=== PATIENT | female | born 1965 | race Caucasian/White ===

== ENCOUNTER 2019-06-13 10:38 | Inpatient (IN) ==
[2019-06-13 11:01] LABS: URINE SOURCE CLEAN CATCH
[2019-06-13 11:04] LABS: BILIRUBIN URINE NEGATIVE (NEGATIVE); BLOOD URINE MODERATE (NEGATIVE); COLOR ORANGE; GLUCOSE URINE NEGATIVE (NEGATIVE); KETONE URINE NEGATIVE (NEGATIVE); LEUKOCYTES URINE LARGE (NEGATIVE); NITRITE URINE POSITIVE (NEGATIVE); PROTEIN URINE 70 mg/dL (NEGATIVE); SP GRAVITY URINE 1.017; TURBIDITY URINE TURBID (CLEAR); UROBILINOGEN URINE NORMAL (NORMAL)
[2019-06-13] MEDS ORDERED: NS 1,000 ML IV ONE ×2 (11:07→11:46)
[2019-06-13 11:08] LABS: UR EPITHELIAL CELLS <10 /HPF (<10); URINE BACTERIA 3+ /HPF; URINE CASTS NONE SEEN; URINE CRYSTALS NONE SEEN; URINE SMALL ROUND CELLS NONE SEEN; URINE WBC TNTC /HPF (<10); URINE YEAST NONE SEEN
[2019-06-13] MEDS ORDERED: ZOFRAN IV ONE (11:08)
[2019-06-13 11:35] LABS: BASO# 0.03 X1000 (0.0-0.2); BASO% 0.1 % (0.0-0.8); EOS# 0.14 X1000 (0.0-0.7); EOS% 0.6 % (0.0-10.0); HEMATOCRIT 42.8 % (37.0-47.0); HEMOGLOBIN 14.8 g/dL (12.0-16.0); IMM GRAN# 0.32 X1000 (0.0-0.04); IMM GRAN% 1.4 % (0.0-0.5); MCH 31.5 PG (27-31); MCHC 34.6 g/dL (33-37); MCV 91.1 FL (81-99); MONO# 0.43 X1000 (0.11-0.59); MONO% 1.8 % (1.7-9.3); MPV 10.5 FL (7.4-10.4); NEUT# 21.18 X1000 (1.4-6.5); NEUT% 90.1 % (42.2-75.2); PLT 170 X1000 (130-400); RDW 13.5 % (11.5-14.5)
[2019-06-13 11:37] LABS: AGAP 15; ALBUMIN 3.5 g/dL (3.5-5.0); ALKALINE PHOSPHATASE 113 U/L (32-104); BUN 21 mg/dL (8-22); CHLORIDE 101 mmol/L (98-107); COSMO 277; CREATININE 0.7 mg/dL (0.5-0.9); ESTIMATED GFR > 60; GLUCOSE 143 mg/dL (70-104); GOT 63 U/L (10-30); GPT 121 U/L (10-36); LIPASE 17 U/L (13-60); POTASSIUM 3.4 mmol/L (3.5-5.1); SODIUM 136 mmol/L (136-145); TCO2 21 mmol/L (25-35); TOTAL PROTEIN 6.9 g/dL (6.3-8.3)
[2019-06-13 11:45] LABS: BANDS 6 % (0-1); EOS 1 % (1-10); LYMPHS 4 % (21-51); MONO 6 % (1-9); SEGS 81 % (42-75)
[2019-06-13] MEDS ORDERED: ZOSYN 3.375 GM in NS 50 ML IV ONE (11:46)
[2019-06-13 11:54] LABS: INFLUENZA A NEGATIVE (NEGATIVE); INFLUENZA B NEGATIVE (NEGATIVE)
[2019-06-13 12:07] LABS: INR 1.15; PROTIME 15.3 Seconds (11.0-16.0)
[2019-06-13 12:08] LABS: PTT 32.2 Seconds (22.3-41.8)
--- NOTE | 2019-06-13 12:55 | Diag Imaging Result Doc PS360 ---
EXAM: CHEST-1 VIEW INDICATION: abd pain TECHNIQUE: One view COMPARISON: 05/10/2019 FINDINGS: The lungs are grossly clear. There is no discrete pleural fluid collection or pneumothorax. The cardiomediastinal silhouette and central vasculature are grossly unremarkable. IMPRESSION: No evidence of acute pathology by plain radiograph. Electronically signed by Alexx Leach 06/13/2019 12:53 PM
--- NOTE | 2019-06-13 13:06 | Diag Imaging Result Doc PS360 ---
EXAM: CT ABD/PELVIS W/IV CONT ONLY INDICATION: abd pain. N/V, POSSIBLE PYELO TECHNIQUE: This exam was performed using automated exposure control, adjustment of mA or kV according to patient size, and/or use of iterative reconstruction technique. COMPARISON: None. FINDINGS: There has been a prior cholecystectomy. There are a couple of small cystic appearing foci near the dome of the liver with no associated enhancement. The spleen, pancreas, and adrenal glands are unremarkable. There is an obstructing stone at the left UPJ measuring up to 6.7 mm axially and 10 mm craniocaudally. There is associated moderate left hydronephrosis. There is no striated nephrogram to indicate pyelonephritis by CT. There is very little perinephric stranding on the left. There are a few other nonobstructing intrarenal stones bilaterally. There are several small bilateral renal cysts. The urinary bladder is grossly unremarkable. The reproductive tract is unremarkable as imaged. There is a surgical staple line associated with the rectosigmoid colon indicating prior partial colon resection. There is extensive uncomplicated diverticulosis coli. There is evidence of a prior appendectomy. No focal bowel wall thickening or bowel obstruction is identified. The remainder of the GI tract is essentially unremarkable. IMPRESSION: 1.Bilateral nephrolithiasis with a large obstructing stone at the left UPJ with associated moderate left hydronephrosis. 2.Other incidental/nonacute findings detailed above. Electronically signed by Alexx Leach 06/13/2019 1:03 PM
--- NOTE | 2019-06-13 13:51 | PROVIDER DOCUMENTATION ---
This chart was entered by Rima Nelson Scribe, acting as scribe for Kamille Barcenas CRNP. HPI-General Adult - General Chief Complaint: N/V/D Stated Complaint: N/V/D, DIZZY Time Seen by Provider: 06/13/19 11:07 Source: patient Allergies/Adverse Reactions: Patient Allergies Allergy/AdvReac Type Severity Reaction Status Date / Time levofloxacin [From Levaquin] Allergy Unknown Verified 06/13/19 11:04 Home Medications: Home Medication List Medication Instructions Recorded Confirmed Last Taken Type NK [No Home Medications] 06/13/19 06/13/19 Unknown History - History of Present Illness -Gen Adult Nature of Presenting Problems: 53 y/o female presents to ED with N/V/D and dizziness onset 3 days ago. Pt reports she experienced some R sided abdominal pain, but it resolved within the first day. Pt is alert and oriented. Location of Pain/Injury: reports: abdomen Pain Radiation: reports: no radiation Quality of Pain: reports: aching Severity: reports: mild Onset/Duration: reports: 3 days ago Timing: reports: still present, gone now (abdominal pain) Context/Activities at Onset: reports: none Modifying Factors: improves with: nothing Associated Symptoms: reports: diarrhea, dizziness, nausea, vomiting, other (R sided abdominal pain) Similar Symptoms Previously?: No Recently seen or treated by another doctor?: No Review of Systems - Adult - REVIEW OF SYSTEMS - ADULT Constitutional: denies: chills, fever Eyes: reports: no symptoms reported Ears, Nose, Mouth & Throat: reports: no symptoms reported Cardiovascular: denies: chest pain, palpitations Respiratory: denies: cough, shortness of breath Gastrointestinal: reports: abdominal pain, diarrhea, nausea, vomiting Genitourinary: reports: no symptoms reported Musculoskeletal: reports: no symptoms reported Integumentary: reports: no symptoms reported Neurological: reports: dizziness/vertigo. denies: seizure Psychiatric: reports: no symptoms reported Endocrine: reports: no symptoms reported Hematologic/Lymphatic: reports: no symptoms reported Allergic/Immunologic: reports: no symptoms reported All Other Systems: Reviewed and Negative Past History - Adult - PAST MEDICAL HISTORY-ADULT Review of Records: reports: Old Records Reviewed, Nursing Assessment Review, Medications Reviewed Major Childhood Illnesses: reports: denies history - PRIOR SURGERIES/PROCEDURES Surgical/Procedure History: reports: hernia repair, bowel surgery (colon resection with mesh) - IMMUNIZATION STATUS Childhood Immunizations: See Nurse Assessment Flu Vaccine: See Nurse Assessment - FAMILY HISTORY Family History: reviewed, not pertinent - SOCIAL HISTORY Smoking: greater than 1 pack/day Provider spent 3-5 mins advising pt. on dangers of tobacco.: Discussed manners to quit use, and f/u contacts for add'l counseling. Substance Use: none/never Alcohol Use Frequency: occasionally Living Situation: family Physical Exam-General - PHYSICAL EXAM-ADULT Initial Vital Signs Reviewed: Yes - CONSTITUTIONAL General Appearance: appears well, alert, no apparent distress - EYES Eyes: PERRL/EOMI, pink conjunctivae - HEAD, EARS, NOSE, MOUTH & THROAT HENMT: normocephalic/atraumatic, moist mucous membranes, normal ENT inspection - NECK Neck: non-tender, full range of motion - RESPIRATORY Respiratory: chest non-tender, lungs clear, normal breath sounds - CARDIOVASCULAR Cardiovascular: tachycardia - GASTROINTESTINAL (ABDOMEN) Abdominal Exam: non tender, soft, abnormal bowel sounds (hyperactive) - MUSCULOSKELETAL Back Exam: normal inspection, no CVA tenderness, no vertebral tenderness Extremity: normal range of motion, non-tender - SKIN Integumentary: normal color, warm/dry - NEUROLOGIC Neurologic: grossly normal - PSYCHIATRIC Psych/Mental Status: normal mood/affect, normal thought content, normal thought process, oriented x 3 Progress - PLAN OF CARE/RESULTS Progress/Plan/Lab Results: Vital Signs - 8 hr 06/13/19 10:50 06/13/19 11:22 Temperature 97.7 F Pulse Rate 103 H Pulse Rate [Sitting] 90 Pulse Rate [Standing] 98 H Pulse Rate [Supine] 85 Respiratory Rate 18 Blood Pressure 95/63 Blood Pressure [Sitting] 94/71 Blood Pressure [Standing] 96/67 Blood Pressure [Supine] 113/82 O2 Sat by Pulse Oximetry 95 Laboratory Results - last 24 hr 06/13/19 06/13/19 10:53 11:00 Amylase 41 Urine Source CLEAN CATCH Urine Color ORANGE Urine Turbidity TURBID Urine pH 6.0 Ur Specific [place] 1.017 Urine Protein 70 A Ur Glucose (Stick) NEGATIVE Ur Ketones (Stick) NEGATIVE Urine Blood MODERATE A Urine Nitrite POSITIVE A Urine Bilirubin NEGATIVE Urobilinogen Dipstick NORMAL Urine Leukocytes LARGE A Urine WBC (Auto) TNTC A Urine RBC (Auto) 10-20 A U Epithel Cells (Auto) <10 Urine Bacteria (Auto) 3+ Urine Crystals NONE SEEN Small Round Cells NONE SEEN Urine Casts NONE SEEN Urine Yeast-like Cells NONE SEEN Orders Category Date Time Status Orthostatic Vital Signs NOW Care 06/13/19 11:07 Active Saline Loc DIRECTED Care 06/13/19 10:53 Active NPO Diet 06/13/19 10:[address] ABD/PELVIS W/IV CONT ONLY [CT] Stat Exams 06/13/19 11:08 Ordered AMYLASE [CHEM] Stat Lab 06/13/19 11:00 Completed BLOOD CULTURE [BLDCUL] Stat Lab 06/13/19 11:12 Ordered CBC WITH ELECTRONIC DIFF [HEME] Stat Lab 06/13/19 11:00 Results COMPREHENSIVE METABOLIC PANEL [CHEM] Stat Lab 06/13/19 11:00 Received Flu [INFLUENZA SCREEN PL] Stat Lab 06/13/19 11:17 Ordered LACTATE, PLASMA [CHEM] Stat Lab 06/13/19 11:12 Ordered LIPASE [CHEM] Stat Lab 06/13/19 11:00 Received URINALYSIS W/POSS RFLX CULT [URINALYSIS] Stat Lab 06/13/19 10:53 Completed URINE CULTURE [RM] Routine Lab 06/13/19 11:08 Ordered URINE MANUAL MICROSCOPIC [URINALYSIS] Stat Lab 06/13/19 10:53 Completed 0.9% Sodium Chloride Inj [Ns] 1,000 ml Med 06/13/19 11:07 Active IV 999 mls/hr Ondansetron [Zofran] Med 06/13/19 11:08 Discontinued 4 mg IV NOW ONE Result Diagrams: 06/13/19 11:00 06/13/19 11:00 - XRAY 1 XRAY Study: Chest Impression: See EMR Report ( EXAM: CHEST-1 VIEW INDICATION: abd pain TECHNIQUE: One view COMPARISON: 05/10/2019 FINDINGS: The lungs are grossly clear. There is no discrete pleural fluid collection or pneumothorax. The cardiomediastinal silhouette and central vasculature are grossly unremarkable. IMPRESSION: No evidence of acute pathology by plain radiograph. Electronically signed by Alexx Leach 06/13/2019 12:53 PM 06/13/19 1253 Interpreting Physician: Alexx Leach MD Dictated Date/Time: 06/13/19 1252 cc: Kamille Barcenas; Neeta Campbell MD) - CT/MRI 1 CT Study: Abdomen, Pelvis Impression: See EMR Report ( EXAM: CT ABD/PELVIS W/IV CONT ONLY INDICATION: abd pain. N/V, POSSIBLE PYELO TECHNIQUE: This exam was performed using automated exposure control, adjustment of mA or kV according to patient size, and/or use of iterative reconstruction technique. COMPARISON: None. FINDINGS: There has been a prior cholecystectomy. There are a couple of small cystic appearing foci near the dome of the liver with no associated enhancement. The spleen, pancreas, and adrenal glands are unremarkable. There is an obstructing stone at the left UPJ measuring up to 6.7 mm axially and 10 mm craniocaudally. There is associated moderate left hydronephrosis. There is no striated nephrogram to indicate pyelonephritis by CT. There is very little perinephric stranding on the left. There are a few other nonobstructing intrarenal stones bilaterally. There are several small bilateral renal cysts. The urinary bladder is grossly unremarkable. The reproductive tract is unremarkable as imaged. There is a surgical staple line associated with the rectosigmoid colon indicating prior partial colon resection. There is extensive uncomplicated diverticulosis coli. There is evidence of a prior appendectomy. No focal bowel wall thickening or bowel obstruction is identified. The remainder of the GI tract is essentially unremarkable. IMPRESSION: 1.Bilateral nephrolithiasis with a large obstructing stone at the left UPJ with associated moderate left hydronephrosis. 2.Other incidental/nonacute findings detailed above. Electronically signed by Alexx Leach 06/13/2019 1:03 PM 06/13/19 1303 Interpreting Physician: Alexx Leach MD Dictated Date/Time: 06/13/19 1256 cc: Kamille Barcenas; Neeta Campbell MD) - CONSULTS/PCP/HOSPITALIST Notification #1 *Consult/PCP/Hospitalist*: Dr. Nieves Time Discussed: 13:15 Consult Disposition: Admit (to [facility] and will take straight to OR) #2 Consult: Dr. Reese Time Discussed: 13:51 Consult Disposition: Will see in ED (20 min then to OR) Departure - Departure Date of Disposition Decision: 06/13/19 Time of Disposition Decision: 13:27 DIAGNOSIS: UTI (urinary tract infection), Sepsis, Urinary tract obstruction due to kidney stone Disposition: ADMITTED INPATIENT 09 Certified Medical Emergency: Emergent Condition: Stable Referrals and Follow-Ups: Neeta Campbell MD [Primary Care Provider] - Discharge Education: Steps to Quit Smoking, [id number] - Critical Care Note This patient required my direct & personal management of CC.: No Attestation - Physician/ MAKENNA Attestation Patient care was provided by Advanced Practice Provider:: Yes Advanced Practice Provider:: Kamille Barcenas Advanced Practice Provider documentation review:: The Mid-level provider documentation, treatment plan and medical decision making was reviewed by the physician who agrees with all treatment and medical decision making by the MLP. The physician spent face to face time with patient:: No Advanced Practice Provider documentation review:: Supervising physician onsite and consulted in the evaluation and care of this patient. The physician did not have a face to face encounter with the patient. This chart was documented by the indicated scribe, (Rima Nelson Scribe) and accurately reflects the services I performed and decisions made by me, Kamille Barcenas CRNP, as attested by the provider's signature.
--- NOTE | 2019-06-13 14:20 | EKG Report ---
Test Performed on : 06/13/2019 2:14:51 PM Test Reason : Dizziness Blood Pressure : / mmHG Vent. Rate : 078 BPM Atrial Rate : 078 BPM P-R Int : 138 ms QRS Dur : 082 ms QT Int : 386 ms P-R-T Axes : 065 023 067 degrees QTc Int : 440 ms Normal sinus rhythm. Normal ECG No previous ECGs available Unconfirmed Result
--- NOTE | 2019-06-13 14:52 | ED EKG INTERP ---
This chart was entered by Rima Nelson Scribe, acting as scribe for Sam Medrano MD. EKG Interpretation - EKG Time of EKG reading by physician:: 14:14 EKG Read and Signed by:: Sam Medrano EKG Interpretation (*Must complete 3 of following elements*): Normal Rate: 78 Rhythm: NSR [place]: normal QRS: normal MS Interval: normal ST Wave: normal Attestation - Physician/ MAKENNA Attestation Patient care was provided by Advanced Practice Provider:: Yes Advanced Practice Provider:: Kamille Barcenas Advanced Practice Provider documentation review:: The Mid-level provider documentation, treatment plan and medical decision making was reviewed by the physician who agrees with all treatment and medical decision making by the P. The physician spent face to face time with patient:: No Advanced Practice Provider documentation review:: Supervising physician onsite and consulted in the evaluation and care of this patient. The physician did not have a face to face encounter with the patient. This chart was documented by the indicated scribe, (Rima Nelson Scribe) and accurately reflects the services I performed and decisions made by me, Sam Medrano MD, as attested by the provider's signature.
[2019-06-13] MEDS ORDERED: XYLOCAINE-MPF 2% ONE (15:47)
[2019-06-13] MEDS ORDERED: ZOFRAN ONE (15:47)
[2019-06-13] MEDS ORDERED: DIPRIVAN 1% ONE (15:47)
[2019-06-13] MEDS ORDERED: DECADRON ONE (15:47)
[2019-06-13] MEDS ORDERED: PRECEDEX ONE (15:49)
[2019-06-13] MEDS ORDERED: EPHEDRINE ONE (16:30)
[2019-06-13] MEDS ORDERED: DITROPAN ONE (17:13)
[2019-06-13] MEDS ORDERED: NS 1,000 ML ONE (17:14)
[2019-06-13] MEDS ORDERED: NS 1,000 ML IV SCH ×2 (17:35)
[2019-06-13] MEDS ORDERED: TYLENOL PO PRN (17:35)
[2019-06-13] MEDS ORDERED: ZOFRAN IV PRN (17:35)
--- NOTE | 2019-06-13 17:42 | HISTORY AND PHYSICAL ---
HISTORY OF PRESENT ILLNESS: She had sudden onset of right-sided back pain, flank pain, also found to have a kidney stone, and that was at [place]. She had a CT of the abdomen and pelvis. She had bilateral nephrolithiasis, large obstructing stone on the left with associated moderate left hydronephrosis, but this was she actually had pain on the left flank, left costovertebral angle, and it was sudden onset, pretty severe. PAST MEDICAL HISTORY: She really has no medical history. ALLERGIES: She is allergic to levofloxacin, sounds like it gave her an intense tendinitis, in her words, paralyzed her. No other allergies. FAMILY HISTORY: Fairly unremarkable. MEDICATIONS: No home medications. SOCIAL HISTORY: She smokes about a pack a day. REVIEW OF SYSTEMS: General: No weight gain or loss. No fever or chills. HEENT: Unremarkable. Respiratory: No increased work of breathing or dyspnea. Cardiovascular: No chest pain or tachy palpitation. Gastrointestinal/Genitourinary: Unremarkable. Musculoskeletal/Neurologic: No significant complaints. Endocrinologic/Hematologic: No significant history. DIAGNOSTIC DATA: Her chest x-ray, no evidence of acute pathology, no infiltrate. The lungs are grossly clear. No discrete pleural fluid. PHYSICAL EXAMINATION: GENERAL: This is in the recovery room. Awake, alert, and oriented x3. VITAL SIGNS: Temperature 98.8 degrees, , respirations 22, blood pressure 106/71. HEENT: Pupils are equal and round. LUNGS: Clear in all lung anguiano. CARDIOVASCULAR: Regular rhythm and rate without murmur or S3. Blood pressure in left arm 113/73. Sitting, it is pulse of 90, blood pressure 94/71. Standing, pulse is 98, blood pressure 96/67. Supine, pulse is 85, blood pressure 113/82. Weight is 145 pounds. Height 5 feet 5 inches. Output was 1900 mL. LABORATORY DATA: White count is 23,500, hematocrit is 42, platelet count 170,000. Sodium 136, potassium 3.4, chloride 101, BUN 21, creatinine 0.7, blood sugar 143. AST is 63, ALT is 121, alkaline phosphatase is 113, albumin is 3.4. ProTime is 15.3. She was tested for influenza A and B, and it was negative with nasal swabs. Urinalysis, lvb-huaonoxm-al-count white blood cells, bacteria 3+. ASSESSMENT AND PLAN: Left ureteral stone, large obstructing stone on the left, measured about 6.7 mm x 10 mm cranial caudally. So, it was extracted, JJ stent was placed. We are going to treat her for urinary tract infection. She is allergic to Levaquin. We will put her on ceftriaxone. We will give her 2 g now, and then 1 g q.24 hours. Check a CBC and electrolytes again in the morning. cc: Sebastián Matias MD MTDAlesia
[2019-06-13] MEDS ORDERED: DITROPAN PO PRN (17:50)
[2019-06-13] MEDS: ZOSYN 3.375 GM in NS 50 ML IV SCH (19:00)
--- NOTE | 2019-06-13 19:11 | OPERATIVE NOTE ---
PROCEDURE DATE: 06/13/2019 SURGEON: Elpidio Nieves MD. PREOPERATIVE DIAGNOSIS: Left pyelonephritis with an obstructing left ureteropelvic junction stone. POSTOPERATIVE DIAGNOSIS: Left pyelonephritis with an obstructing left ureteropelvic junction stone. PROCEDURE PERFORMED: Cystoscopic exam, place left double-J stent. ANESTHESIA: General via laryngeal mask. FINDINGS: Cystoscopic exam: Urethra-greater than 21 Latvian without stricture. Bladder-normal ureteral orifices bilaterally. No papillary lesions or trabeculations. No diverticula. Plain film of the abdomen revealed contrast in the left collecting system that was placed early this morning for her contrasted CT scan. After a wire was placed, the upper collecting system decompressed. exam: Normal external female. Normal mucosa. No adnexal masses. Palpably normal cervix and uterus. Palpably normal bladder. INDICATIONS FOR PROCEDURE: This 53-year-old female has a several day history of nausea and vomiting and occasional abdominal pains. CT scan revealed a 9 to 10 mm obstructing stone at the left ureteropelvic junction. Her white count was 23,000. DESCRIPTION OF PROCEDURE: After informed consent was obtained from the patient, her receiving IV antibiotics, she was taken to the main OR cystoscopy room, placed in the supine position. General anesthesia via laryngeal mask was achieved. She was then placed in the low lithotomy position and prepped and draped in the usual sterile fashion for cystoscopic exam. A 21-Latvian cystoscope was passed the patient's urethra and into the bladder with findings as noted above. A 0.035 ZIPwire was passed through the cystoscope, engaged left ureteral orifice, advanced up into the kidney. The renal end was verified by fluoroscopic exam. A 6-Latvian, 24 cm double-J stent was passed over the ZIPwire and up into the left renal pelvis. The wire was removed. The bladder end of the stent was verified in normal position. The fluoroscopic exam verified the renal end. The bladder was drained. Cystoscope was removed. Final x-ray taken that revealed the stent in good position. exam performed. She tolerated the procedure well. Estimated blood loss was 0. She was taken to recovery room in good condition. cc: MD Sebastián Chan MD
[2019-06-13] MEDS: PERIDEX MT SCH (20:40)
[2019-06-13] MEDS ORDERED: BENADRYL PO ONE (21:16)
[2019-06-14] MEDS: ZOSYN 3.375 GM in NS 50 ML IV SCH ×2 (05:02→09:00)
[2019-06-14 06:50] VITALS: BP 122/73
[2019-06-14 08:16] LABS: AGAP 12; ALB/GLOB RATIO 1.1; ALKALINE PHOSPHATASE 97 U/L (32-104); BUN 13 mg/dL (8-22); CALCIUM 8.7 mg/dL (8.8-10.2); CHLORIDE 109 mmol/L (98-107); COSMO 289; CREATININE 0.6 mg/dL (0.5-0.9); ESTIMATED GFR > 60; GLUCOSE 195 mg/dL (70-104); GOT 22 U/L (10-30); GPT 68 U/L (10-36); MAGNESIUM 1.7 mg/dL (1.5-2.7); POTASSIUM 4.2 mmol/L (3.5-5.1); SODIUM 142 mmol/L (136-145); TCO2 21 mmol/L (25-35); TOTAL BILIRUBIN 0.26 mg/dL (0.20-1.00); TOTAL PROTEIN 5.7 g/dL (6.3-8.3)
[2019-06-14 08:17] LABS: BASO# 0.01 X1000 (0.0-0.2); BASO% 0.1 % (0.0-0.8); HEMATOCRIT 38.5 % (37.0-47.0); HEMOGLOBIN 12.9 g/dL (12.0-16.0); IMM GRAN# 0.05 X1000 (0.0-0.04); IMM GRAN% 0.3 % (0.0-0.5); LYMPH# 0.74 X1000 (1.2-3.4); LYMPH% 4.9 % (20.5-51.1); MCH 31.5 PG (27-31); MCHC 33.5 g/dL (33-37); MCV 93.9 FL (81-99); MONO# 0.51 X1000 (0.11-0.59); MONO% 3.4 % (1.7-9.3); MPV 10.9 FL (7.4-10.4); NEUT# 13.88 X1000 (1.4-6.5); NEUT% 91.3 % (42.2-75.2); PLT 142 X1000 (130-400); RDW 13.6 % (11.5-14.5); WBC 15.19 X1000 (4.8-10.8)
[2019-06-14] MEDS: PERIDEX MT SCH (09:00)
--- NOTE | 2019-06-14 09:21 | DISCHARGE SUMMARY ---
ADMISSION DATE: 06/13/2019 DISCHARGE DATE: 06/14/2019 DISCHARGE DIAGNOSES: 1. Acute pyelonephritis. 2. Left ureteral stone, status post stent placement. CONSULTATIONS: Dr. Elpidio Nieves from Urology. PROCEDURES: 1. Abdomen and pelvis CT showed bilateral hydronephrosis with a large obstructing stone of the left UPJ with associated moderate left hydronephrosis. 2. Cystoscopy exam with placement of left double J stent performed by Dr. Nieves on 06/13/2019. HOSPITAL COURSE: In brief, this is a patient with unremarkable past medical history who came to the emergency department complaining of right-sided back pain and flank pain, so she was evaluating at [facility], and she was found to have a kidney stone, so she was sent to [facility] for further evaluation by Cardiology. Cardiology took her to [facility] to be seen by Urology. They performed procedure as above. The patient is now feeling much better. White cell count is not completely fine or back to normal, but the patient insisted on going home today, so we are going to provide an antibiotic for 14 days, pain medication, and she is going to be seen in the office by Dr. Nieves for lithotripsy. The patient is being discharged in stable condition. DISCHARGE PHYSICAL EXAMINATION: Vital Signs: Temperature 97.5, heart rate 54, respiratory rate 20, blood pressure 122/73, O2 saturation 98% on room air. General: This is a 53-year-old, female, lying in bed in no acute distress. Cardiovascular: S1, S2 heard. No murmurs, gallops, or rubs. Regular rate and rhythm. Respiratory: Clear bilaterally to auscultation. No work of breathing or using accessory muscles. Abdomen: Soft, nontender to palpation. Bowel sounds present. No organomegaly. Extremities: No clubbing, cyanosis, or edema. Peripheral pulses present in both legs. Neurological: The patient is alert and oriented x3. Moves all 4 extremities. DISCHARGE DISPOSITION: Home to self-care. FOLLOWUP: Follow up with Dr. Elpidio Nieves in a week. DISCHARGE MEDICATIONS: 1. Cefdinir 300 mg 1 tablet p.o. b.i.d. for 10 days. 2. [place] 5 mg 1 tablet p.o. every 6 hours as needed for pain. 3. Ditropan as needed for urine spasms. cc: Graham Dietz MD
[2019-06-14 10:31] LABS: BANDS 12 % (0-1); LYMPHS 4 % (21-51); SEGS 84 % (42-75)
--- NOTE | 2019-06-16 08:42 | Diag Imaging Result Doc PS360 ---
FLUROSCOPY CYSTO - 06/13/2019 INDICATION: L STENT INSTALLED TECHNIQUE: Fluoroscopy and multiple views of the abdomen. The exam was performed by the patient's urologist. 15 images were obtained. COMPARISON: CT from 06/13/2019 FINDINGS: There is significant left hydronephrosis, residual from the previous excreted intravenous contrast. There was wire instrumentation of the left ureter and renal collecting system. A left nephroureteral stent was placed in good position. IMPRESSION: No complication. Electronically signed by Nick Hunt 06/16/2019 8:40 AM
== END 2019-06-14 09:25 | disposition home or self-care (01) | DRG 661 ==
LOC: P.ED 10:38 → 4N 16:55 → SUATTDRO 16:55
PROVIDERS: ATTEND Internal Medicine